=== PATIENT | female | born 1990 | race Caucasian/White ===

== ENCOUNTER 2016-08-16 14:16 | Emergency (ER) | payer MEDICAID ==
[2016-08-16 14:30] VITALS: BP 125/67
--- NOTE | 2016-08-16 15:15 | UC ---
Abdominal Pain Female HPI - HPI Summary HPI Summary: at 14 weeks GA p/w c/o ruq pain that started suddenly last night and has persisted to the present.constant, sharp, nonradiating. worse with bumps in the road and eating. associated sx include, n/v, marin. denies sob, cp, swelling of hands and feet, visual changes, urinary sx, vag bleeding, contraction. - History of Current Complaint Chief Complaint: UCAbdominalPain Stated Complaint: UPPER R ABD PAIN,VOMITING,14 WEEKS PREG Time Seen by Provider: 08/16/16 14:40 Hx Obtained From: Patient Hx Last Menstrual Period: 05/07/16 ?: Yes Onset/Duration: Sudden Onset, Lasting Days - 1, Still Present Timing: Constant Severity Initially: Moderate Severity Currently: Moderate Pain Intensity: 4 Location: Discrete At: RUQ Radiates: No Character: Sharp Aggravating Factor(s): Food, Movement, Other: - bumps in the road Alleviating Factor(s): Nothing Associated Signs and Symptoms: Positive: Nausea, Vomiting, Other: - headache. Negative: Fever, Cough, Chest Pain, Blood in Stool, Urinary Symptoms, Vaginal Bleeding, Vaginal Discharge, Diarrhea Allergies/Adverse Reactions: Allergies Allergy/AdvReac Type Severity Reaction Status Date / Time Penicillins Allergy Severe Anaphylatic Verified 08/16/16 14:23 Shock Home Medications: Home Medications Vitamin TAB* 1 tab PO DAILY 08/16/16 [History Confirmed 08/16/16] PMH/Surg Hx/FS Hx/Imm Hx Endocrine History Of: Denies: Diabetes, Thyroid Disease Cardiovascular History Of: Denies: Cardiac Disorders, Hypertension, Pacemaker/ICD Respiratory History Of: Reports: Asthma Denies: COPD GI/ History Of: Denies: Gastroesophageal Reflux, Ulcer, Renal Disease Neurological History Of: Denies: CVA, Dementia, Seizures Other History Of: Negative For: Anticoagulant Therapy - Surgical History Surgical History: Yes Surgery Procedure, Year, and Place: GB removed Jan 2012 w/subsequent pancreatitis and hospitalized - Family History Known Family History: Positive: Diabetes Negative: Cardiac Disease, Hypertension - Social History Lives: With Family Alcohol Use: None Substance Use Type: None Smoking Status (MU): Former Smoker Type: Cigarettes Amount Used/How Often: 1/4-1/2 PPD Length of Time of Smoking/Using Tobacco: 2010 Have You Smoked in the Last Year: Yes When Did the Patient Quit Smoking/Using Tobacco: 08/11/14 Household Exposure Type: Cigarettes - Immunization History Most Recent Influenza Vaccination: Not the Season Review of Systems Constitutional: Negative Skin: Negative Eyes: Negative Respiratory: Negative Cardiovascular: Negative Gastrointestinal: Abdominal Pain, Vomiting, Other - nausea Genitourinary: Negative Motor: Negative Neurovascular: Negative Musculoskeletal: Negative Neurological: Headache Psychological: Negative All Other Systems Reviewed And Are Negative: Yes Physical Exam Triage Information Reviewed: Yes Appearance: Well-Appearing, No Pain Distress, Obese Vital Signs: Initial Vital Signs Temp 98.0 F 08/16/16 14:24 Pulse 87 08/16/16 14:24 Resp 16 08/16/16 14:24 BP 125/67 08/16/16 14:24 Pulse Ox 98 08/16/16 14:24 Vital Signs Reviewed: Yes Eyes: Positive: Conjunctiva Clear. Negative: Discharge ENT: Positive: Hearing grossly normal. Negative: Muffled/hoarse voice Neck: Positive: Supple Respiratory: Positive: No respiratory distress, No accessory muscle use, Wheezing - scattered, worst in right base Cardiovascular: Positive: RRR, No Murmur Abdomen Description: Positive: Soft, McBurney's Point Tenderness. Negative: Nontender - right sided tenderness, worst in ruq, CVA Tenderness (R), CVA Tenderness (L), Distended, Guarding, Hepatomegaly Bowel Sounds: Positive: Present Musculoskeletal Exam: Normal Neurological: Positive: Alert, Muscle Tone Normal Psychological: Positive: Age Appropriate Behavior Skin Exam: Normal Abd Pain Female Course/Dx - Differential Dx/Diagnosis Differential Diagnosis: Appendicitis, Constipation, Irritable Bowel Syndrome, Renal Colic, Urinary Tract Infection, Other - pre-ecclampsia Provider Diagnoses: ruq pain in , proteinuria Discharge - Discharge Plan Condition: Stable Disposition: AGAINST MEDICAL ADVICE Discharge Disposition Comment: pt ob is at [facility] in [place]. ob instructed pt to got to [facility] if need
== END 2016-08-16 15:13 | disposition left against medical advice (07) ==
LOC: UCCORT 14:16
DX: O12.11 Gestational proteinuria, first trimester (principal); R10.11 Right upper quadrant pain; Z3A.14 14 weeks gestation of pregnancy; J45.909 Unspecified asthma, uncomplicated; E66.9 Obesity, unspecified; Z90.49 Acquired absence of other specified parts of digestive tract; Z88.0 Allergy status to penicillin; Z87.891 Personal history of nicotine dependence
CPT/HCPCS: 81003; 99212; G0463

== ENCOUNTER 2019-01-29 09:23 | Emergency (ER) | payer BC, MEDICAID ==
[2019-01-29 09:44] VITALS: BP 118/65
--- NOTE | 2019-01-29 10:02 | UC ---
Cardiac HPI - HPI Summary HPI Summary: 28-year-old woman comes in with chief complaint of chest pain and shortness of breath. Yesterday patient started feeling ill as if she was starting up with an infection. The middle of night she started with chest pain coughing shortness breath and sputum production. Sputum and started turning yellow. Reports fever 101 at home. Has been using her albuterol inhaler without much relief. Reports the chest pain is circumferential. Shortness of breath is worse with activity. She did not take any [id number] medications. No pedal edema no calf pain. - History of Current Complaint Chief Complaint: UCChestPain Stated Complaint: CHEST PAIN,SOB, COUGH Time Seen by Provider: 01/29/19 09:44 Hx Last Menstrual Period: 01/24/19 Pain Intensity: 5 - Allergy/Home Medications Allergies/Adverse Reactions: Allergies Allergy/AdvReac Type Severity Reaction Status Date / Time Penicillins Allergy Severe Anaphylatic Verified 01/29/19 09:30 Shock Home Medications: Home Medications Ascorbic Acid/Multivit-Min [Emergen-C Vitamin C] 1 brandon PO PRN 01/29/19 [History] Biotin 1 mg PO DAILY 01/29/19 [History Confirmed 01/29/19] Levonorgestrel (Iud) [Kyleena IUD] 17.5 mcg IU 01/29/19 [History] Melatonin 1 mg PO BEDTIME 01/29/19 [History Confirmed 01/29/19] Multivitamin [Multivitamins] 1 cap PO DAILY 01/29/19 [History Confirmed 01/29/19 ] PMH/Surg Hx/FS Hx/Imm Hx Previously Healthy: Yes Respiratory History: Pneumonia Other History Of: Negative For: Anticoagulant Therapy - Surgical History Surgical History: Yes Surgery Procedure, Year, and Place: GB removed Jan 2012 w/subsequent pancreatitis and hospitalized. GASTRIC SLEEVE MAY 2018 - Family History Known Family History: Positive: Diabetes Negative: Cardiac Disease, Hypertension - Social History Alcohol Use: Occasionally Substance Use Type: None Smoking Status (MU): Former Smoker Type: Cigarettes Amount Used/How Often: 1/4-1/2 PPD Length of Time of Smoking/Using Tobacco: 2010 Have You Smoked in the Last Year: Yes When Did the Patient Quit Smoking/Using Tobacco: 08/11/14 Household Exposure Type: Cigarettes - Immunization History Most Recent Influenza Vaccination: Not the 2015/2016 Season Review of Systems All Other Systems Reviewed And Are Negative: Yes Constitutional: Positive: Fever, Chills, Fatigue, Other - SEE HPI Skin: Positive: Negative Eyes: Positive: Negative ENT: Positive: Nasal Discharge Respiratory: Positive: Shortness Of Breath, Cough, Other - SEE HPI Cardiovascular: Positive: Chest Pain Gastrointestinal: Positive: Negative Motor: Positive: Negative Neurovascular: Positive: Negative Musculoskeletal: Positive: Negative Neurological: Positive: Negative Psychological: Positive: Negative Is Patient Immunocompromised?: No Physical Exam Triage Information Reviewed: Yes Appearance: No Pain Distress, Well-Nourished, Ill-Appearing - MILD Vital Signs: Initial Vital Signs Temp 98.3 F 01/29/19 09:34 Pulse 93 01/29/19 09:34 Resp 16 01/29/19 09:34 BP 118/65 01/29/19 09:34 Pulse Ox 98 01/29/19 09:34 Vital Signs Reviewed: Yes Eye Exam: Normal Eyes: Positive: Conjunctiva Clear ENT: Positive: Pharyngeal erythema, Nasal congestion, TMs normal Neck: Positive: Nontender Respiratory: Positive: Lungs clear, Normal breath sounds, No respiratory distress Cardiovascular: Positive: RRR Musculoskeletal: Positive: Strength Intact, ROM Intact, No Edema - NO CALF TENDERNESS Neurological: Positive: Alert, Muscle Tone Normal Psychological: Positive: Age Appropriate Behavior Skin Exam: Normal Diagnostics - EKG Cardiac Rate: NL - 0927 Cardiac Rhythm: Sinus: Normal - 77BPM Ectopy: None Summary of EKG Findings: FLAT T WAVES INFERIOR LATERAL - Assessment/Plan Course Of Treatment: Wireless Telegrapher: Francisco Sy F ([id number]) Holter Technician: ZHENG ( ZHENG) Report Date: 01/29/2019 09:55:00 Report Status: Final ====== Start of Report Content Patient Name: SHARMIN SEVILLA Medical Record# : [id number] Ordering Physician: Jacob Dunlap MD Acct.#: [id number] : 1990 Age: 28 Sex: F Location: [facility] Exam Date: 01/29/19 0955 ADM Status: PRE ER Order Information: CHEST PA LAT 2 VWS Accession Number: [id number] CPT: 90598 INDICATION: Cough, fever and pain. COMPARISON: Comparison is made with a prior study from September 13, 2015. TECHNIQUE: Dual- energy PA and lateral views of the chest were obtained. FINDINGS: The heart is within normal limits in size. Mediastinal and hilar contours appear within normal limits. The lungs are underinflated. There is a small infiltrate in the left lower lobe. The lungs are otherwise clear. No pleural effusion is seen. IMPRESSION: LOW LUNG VOLUMES, SMALL LEFT LOWER LOBE INFILTRATE. <Electronically signed by Francisco Sy MD in OV> 01/29/19 1025 Dictated By: Francisco Sy MD Dictated Date/ Time: 01/29/19 1024 Transcribed Date/Time: 01/29/19 1024 Copy to: CC:Burak GIRALDO; Jacob Dunlap MD Imaging - [facility] [place] Imaging - [facility] [address] [address] ph ) ph [phone]) ph ([phone]) End of Report Content I discussed the x-rays with the patient. To start the patient on doxycycline 100 mg by mouth twice a day. She will continue using albuterol at home and-a prescription for a nebulizer. She will follow-up her primary care doctor in go to the emergency department if worse or any questions or concerns. - Clinical Impression Provider Diagnosis: Pneumonia, Asthma Discharge ED - Sign-Out/Discharge Documenting (check all that apply): Patient Departure All imaging exams completed and their final reports reviewed: Yes - Discharge Plan Condition: Stable Disposition: HOME Prescriptions: Albuterol 2.5MG/3ML (0.083%)* [Ventolin 2.5 MG/3 ML NEB.PAL*] 2.5 mg INH Q4H PRN #30 neb.pal PRN Reason: Wheezing DOXYcycline CAP(*) [DOXYcycline 100MG CAP(*)] 100 mg PO BID #19 cap Patient Education Materials: Community Acquired Pneumonia (ED), Asthma (ED) Forms: *Work Release Referrals: Burak Jones PA [Primary Care Provider] - Additional Instructions: FOLLOW UP WITH YOUR DOCTOR. GO TO THE EMERGENCY DEPARTMENT IF NOT IMPROVING OR YOUR CONDITION WORSENS OR ANY QUESTIONS OR CONCERNS - Billing Disposition and Condition Condition: STABLE Disposition: Home
[2019-01-29] MEDS ORDERED: Albuterol 2.5 MG/3 ML NEB.SOL* (0.083%) INH ONE (10:39)
[2019-01-29] MEDS ORDERED: DOXYcycline CAP(*) 100 MG PO ONE (10:41)
== END 2019-01-29 11:23 | disposition home or self-care (01) ==
LOC: UCCORT 09:23
DX: J18.9 Pneumonia, unspecified organism (principal); J45.909 Unspecified asthma, uncomplicated; Z87.891 Personal history of nicotine dependence; Z88.0 Allergy status to penicillin
CPT/HCPCS: 71046; 93005; 99212; A9270-GY; G0463

== ENCOUNTER 2019-05-17 08:58 | Emergency (ER) | payer BC ==
[2019-05-17 09:40] VITALS: BP 122/77
[2019-05-17 09:49] LABS: Influenza B Molecular POSITIVE (Negative)
--- NOTE | 2019-05-17 09:57 | UC ---
Respiratory Complaint HPI - HPI Summary HPI Summary: cough x 4 days cough is dry , worse with deep breathing + wheezing, nasal congestion , sore throat, fever, chills, body aches - History of Current Complaint Chief Complaint: UCRespiratory Stated Complaint: FLU SYMP Time Seen by Provider: 05/17/19 09:50 Hx Obtained From: Patient Hx Last Menstrual Period: 05/13/2019 Onset/Duration: Gradual Onset, Lasting Days - 4, Still Present Timing: Constant Severity Initially: Moderate Severity Currently: Moderate Pain Intensity: 3 Character: Cough: Nonproductive Aggravating Factors: Exertion Alleviating Factors: Nothing Associated Signs And Symptoms: Positive: Dyspnea, Fever, Chills, Wheezing, URI, Nasal Congestion. Negative: Dizziness, Calf Pain, Calf Swelling - Allergies/Home Medications Allergies/Adverse Reactions: Allergies Allergy/AdvReac Type Severity Reaction Status Date / Time Penicillins Allergy Severe Anaphylatic Verified 05/17/19 09:33 Shock Home Medications: Home Medications Budesonide/Formote 80/4.5(NF) [Symbicort 80/4.5 (NF)] 1 puff INH BID 05/17/19 [ History Confirmed 05/17/19] Montelukast Sodium TAB* [Singulair TAB*] 10 mg PO DAILY 05/17/19 [History Confirmed 05/17/19] PMH/Surg Hx/FS Hx/Imm Hx Respiratory History: Asthma Other History Of: Negative For: Anticoagulant Therapy - Surgical History Surgical History: Yes Surgery Procedure, Year, and Place: GB removed Jan 2012 w/subsequent pancreatitis and hospitalized. GASTRIC SLEEVE MAY 2018 - Family History Known Family History: Positive: Diabetes Negative: Cardiac Disease, Hypertension - Social History Alcohol Use: Occasionally Substance Use Type: None Smoking Status (MU): Former Smoker Type: Cigarettes Amount Used/How Often: /4-1/2 PPD Length of Time of Smoking/Using Tobacco: 2010 Have You Smoked in the Last Year: Yes When Did the Patient Quit Smoking/Using Tobacco: 08/11/14 Household Exposure Type: Cigarettes - Immunization History Most Recent Influenza Vaccination: Not the 2014/2015 Season Review of Systems All Other Systems Reviewed And Are Negative: Yes Constitutional: Positive: Fever, Chills, Fatigue Skin: Positive: Negative Eyes: Positive: Negative ENT: Positive: Sore Throat, Nasal Discharge Respiratory: Positive: Cough Musculoskeletal: Positive: Arthralgia, Myalgia Is Patient Immunocompromised?: No Physical Exam Triage Information Reviewed: Yes Appearance: Well-Appearing, No Pain Distress, Well-Nourished Vital Signs: Initial Vital Signs Temp 100 F 05/17/19 09:35 Pulse 97 05/17/19 09:35 Resp 16 05/17/19 09:35 BP 122/77 05/17/19 09:35 Pulse Ox 97 05/17/19 09:35 Vital Signs Reviewed: Yes Eye Exam: Normal Eyes: Positive: Conjunctiva Clear ENT: Positive: Normal ENT inspection, Hearing grossly normal, Pharynx normal Neck: Positive: Supple, Nontender, No Lymphadenopathy Respiratory: Positive: Chest non-tender, Lungs clear, Normal breath sounds Cardiovascular: Positive: RRR, No Murmur, Pulses Normal Abdominal Exam: Normal Respiratory Course/Dx - Differential Dx/Diagnosis Provider Diagnosis: Influenza Discharge ED - Sign-Out/Discharge Documenting (check all that apply): Patient Departure All imaging exams completed and their final reports reviewed: No Studies - Discharge Plan Condition: Stable Disposition: HOME Prescriptions: Albuterol 2.5MG/3ML (0.083%)* [Ventolin 2.5 MG/3 ML NEB.PAL*] 2.5 mg INH Q6H #1 pkt predniSONE [Prednisone 20 MG TAB] 20 mg PO BID #10 tablet Patient Education Materials: Influenza (ED) Forms: *Work Release Referrals: Ervin Martinez DO [Primary Care Provider] - If Needed - Billing Disposition and Condition Condition: STABLE Disposition: Home
== END 2019-05-17 10:01 | disposition home or self-care (01) ==
LOC: UCCORT 08:58
DX: J11.1 Influenza due to unidentified influenza virus with other respiratory manifestations (principal); J45.909 Unspecified asthma, uncomplicated; Z88.0 Allergy status to penicillin; Z79.51 Long term (current) use of inhaled steroids; Z87.891 Personal history of nicotine dependence
CPT/HCPCS: 99212; G0463